=== PATIENT | male | born 1990 | race Caucasian/White ===

== ENCOUNTER 2022-11-02 12:46 | Outpatient (CLI) | payer OTHER ==
--- NOTE | 2022-11-12 11:37 | MRI Report ---
PROCEDURE: MRI brain with and without contrast INDICATIONS: 32-year-old male with migraines, visual disturbance, dizziness, weakness and paresthesi a bilateral upper and lower extremities CONTRAST: GADAVIST 10.0 ML TECHNIQUE: Noncontrast axial T1 spin echo, axial T2 fast spin echo, sagittal and axial FLAIR, coronal T2 fast sp in echo, axial gradient echo, axial diffusion and ADC through the brain. After the administration of contrast, axial and coronal T1 spin echo with fat saturation through the brain. Attempts at venous access were unsuccessful, and no contrast was utilized. Patient was advised to ret urn to clinic without follow-up. Please note, study was obtained 11/02/2022, and was available for interpretation 11/12/2022. COMPARISON: None. FINDINGS: Image quality: Excellent. CSF spaces: Basal cisterns are patent. No extra-axial fluid collections. Ventricles are normal in size and shape. Brain: No midline shift. No intracranial bleeds or masses. No abnormal intracranial enhancement. There is cerebral volume loss for age. There is periventricular white matter chronic small vessel is chemic change. The brainstem appears normal. Diffusion-weighted images demonstrate no acute infarct . Normal intravascular flow voids are present. Skull and face: Calvarial marrow is normal in signal. Orbits appear normal. Incidental horizontal occipital scalp linear scar noted across the midline. No evidence of intracranial injury or skull fra cture Sinuses: Sinuses and mastoids appear clear. IMPRESSION: Unremarkable MRI brain. No evidence of acute infarct, hemorrhage or mass lesion. Reviewed by: Anson Berry MD on 11/12/2022 10:36 AM PATRICK Approved by: Anson Berry MD on 11/12/2022 10:36 AM MIONUR Station ID: [id number]
== END 2022-11-02 12:47 | disposition home or self-care (01) ==
LOC: DI 12:46
DX: H53.10 Unspecified subjective visual disturbances (principal)
CPT/HCPCS: 70553; A9585